=== PATIENT | female | born 1945 | race Caucasian/White ===

== ENCOUNTER 2019-07-19 14:49 | Emergency (ER) | payer MEDICARE, MEDICAID ==
[2019-07-19] MEDS ORDERED: Albuterol Sulfate 2.5 mg/0.5 ml Neb ONE ×2 (14:55→14:56)
[2019-07-19 15:12] LABS: #Basophils 0.2 thou/uL (0.0-0.2); #Lymphocytes 1.6 thou/uL (1.20-3.40); #Monocytes 1.9 thou/uL (0.11-0.59); #Neutrophils 12.4 thou/uL (1.40-6.50); %Basophils 1.3 % (0.0-1.0); %Lymphocytes 9.7 % (21.0-51.0); %Monocytes 11.6 % (0.0-10.0); %Neutrophils 77.3 % (42.0-75.0); Hemoglobin 11.4 g/dL (12.0-16.0); Mean Corpuscular HGB CONC 30.1 g/dL (32.0-36.0); Mean Corpuscular Hemoglobin 29.1 pg (27.0-31.0); Mean Corpuscular Volume 96.7 fL (78.0-98.0); Mean Platelet Volume 6.5 fL (7.4-10.4); Platelet Count 468 thou/uL (130-400); RBC Distribution Width 13.8 % (11.5-14.5)
[2019-07-19 15:26] LABS: ALT (SGPT) 15 U/L (8-55); AST (SGOT) 20 U/L (5-34); Albumin 3.3 g/dL (3.4-4.8); Alkaline Phosphatase 100 U/L (40-110); Anion Gap 16 mmol/L (10-20); BUN (Urea Nitrogen) 11 mg/dL (9.8-20.1); Bilirubin, Total 1.8 mg/dL (0.2-1.2); Calc. Creatinine Clearance 0 mL/min (70-130); Calcium 8.4 mg/dL (7.8-10.44); Carbon Dioxide 27 mmol/L (23-31); Chloride 93 mmol/L (98-107); Estimated GFR-MDRD 59; Glucose 161 mg/dL (83-110); Potassium 3.9 mmol/L (3.5-5.1); Protein, Total 7.3 g/dL (6.0-8.3); Sodium 132 mmol/L (136-145)
--- NOTE | 2019-07-19 15:27 | RAD ---
CHEST 1 VIEW PORTABLE: Date: 07/19/2019 HISTORY: Dyspnea. FINDINGS: Minimal cardiomegaly. Fairly marked increased linear and interstitial markings noted diffusely throug hout both lungs. Possibilities include that of chronic versus acute interstitial disease. Slight prom inence of the proximal pulmonary artery segments bilaterally. Old granulomatous disease. No old studi es. IMPRESSION: Minimal cardiomegaly with prominent increased linear and interstitial markings noted throughout both lungs, particularly in the perihilar regions, with some slight nodular fullness of both hilar areas, possible somewhat enlarged proximal pulmonary artery segments, which would raise concern for some chr onic interstitial lung disease. Correlate clinically. Continue short-term follow-up. POS: [facility]
[2019-07-19 15:45] LABS: CKMB 0.9 ng/mL (0-6.6)
[2019-07-19 15:55] LABS: INR-International Normal Ratio 1.2; Prothrombin Time 15.1 SEC (12.0-14.7)
[2019-07-19] MEDS ORDERED: Sodium Chloride 0.9% 100 ML ONE (16:13)
[2019-07-19] MEDS ORDERED: cefTRIAXone\\ROCEPHIN 1 GM VIAL ONE (16:13)
[2019-07-19] MEDS ORDERED: Aspirin Chewable 81 MG TAB ONE (16:13)
[2019-07-19] MEDS ORDERED: Furosemide 40 MG/4 ML VIAL ONE (19:07)
== END 2019-07-19 19:37 | disposition short-term general hospital (02) ==
LOC: MADERS 14:49
DX: R06.00 Dyspnea, unspecified (principal); Z79.82 Long term (current) use of aspirin; Z79.899 Other long term (current) drug therapy
CPT/HCPCS: 71045; 80053; 82553; 83605; 83880; 84484; 85025; 85610; 85730; 87040; 93005; 94760; 96365; 96375; 99292; J0696; J1940; J3490; J7611

== ENCOUNTER 2020-02-12 13:06 | Emergency (ER) | payer MEDICARE, MEDICAID ==
[~2020-02-12 13:06] MED LIST: Iopamidol 370 76% 100 ML VIAL ONE
[2020-02-12] MEDS ORDERED: Ondansetron PF 4 MG/2 ML Vial ONE (13:27)
[2020-02-12] MEDS ORDERED: Morphine 2 MG/ML SYRINGE ONE (13:27)
[2020-02-12 13:35] LABS: #Basophils 0.2 thou/uL (0.0-0.2); #Eosinphils 0.2 thou/uL (0.0-0.7); #Lymphocytes 1.7 thou/uL (1.20-3.40); %Basophils 1.1 % (0.0-1.0); %Eosinophils 1.2 % (0.0-10.0); %Lymphocytes 10.4 % (21.0-51.0); %Monocytes 6.2 % (0.0-10.0); %Neutrophils 81.2 % (42.0-75.0); Hemoglobin 10.6 g/dL (12.0-16.0); Mean Corpuscular HGB CONC 31.7 g/dL (32.0-36.0); Mean Corpuscular Hemoglobin 29.9 pg (27.0-31.0); Mean Corpuscular Volume 94.2 fL (78.0-98.0); Mean Platelet Volume 5.2 fL (7.4-10.4); Platelet Count 523 thou/uL (130-400); RBC Distribution Width 14.2 % (11.5-14.5); Red Blood Cell (RBC) Count 3.55 mill/uL (4.20-5.40); White Blood Cell (WBC) Count 16.1 thou/uL (4.8-10.8)
[2020-02-12 13:46] LABS: Lactic Acid 1.3 mmol/L (0.5-2.2)
[2020-02-12 13:47] LABS: Bilirubin Negative (Negative); Blood, Urine Moderate (Negative); Clarity Clear (Clear); Glucose, Urine (Dipstick) Negative (Negative); Ketone, Urine Negative (Negative); Leukocyte Moderate (Negative); Nitrite Positive (Negative); Protein, Urine (Dipstick) Negative (Neg-Trace); Specific Gravity, Urine 1.015 (1.005-1.030); Urobilinogen 0.2 mg/dL (Less than 2); pH, Urine 7.5 (5.0-9.0)
[2020-02-12 13:53] LABS: ALT (SGPT) 12 U/L (8-55); AST (SGOT) 12 U/L (5-34); Albumin 3.9 g/dL (3.4-4.8); Alkaline Phosphatase 75 U/L (40-110); Anion Gap 15 mmol/L (10-20); BUN (Urea Nitrogen) 10 mg/dL (9.8-20.1); Bilirubin, Total 0.4 mg/dL (0.2-1.2); CK (CPK) 55 U/L (29-168); Calc. Creatinine Clearance 0 mL/min (70-130); Calcium 8.6 mg/dL (7.8-10.44); Carbon Dioxide 23 mmol/L (23-31); Chloride 97 mmol/L (98-107); Estimated GFR-MDRD 71; Globulin 3.2 g/dL (2.4-3.5); Glucose 124 mg/dL (83-110); Lipase 17 U/L (8-78); Potassium 4.4 mmol/L (3.5-5.1); Protein, Total 7.1 g/dL (6.0-8.3); Sodium 131 mmol/L (136-145)
[2020-02-12 14:01] LABS: RBC/HPF 0-3 HPF (0-3)
[2020-02-12 14:02] LABS: Bacteria/HPF 3+ HPF (None Seen)
[2020-02-12] MEDS ORDERED: Sodium Chloride 0.9% 100 ML ONE (14:05)
[2020-02-12] MEDS ORDERED: cefTRIAXone\\ROCEPHIN 1 GM VIAL ONE (14:05)
--- NOTE | 2020-02-12 14:32 | CT ---
CT Abdomen Pelvis W Con HISTORY: Abdominal pain and bloating COMPARISON: None. FINDINGS: The chronic changes in the lung bases. The patient is postcholecystectomy and hysterectomy. The liver , spleen, adrenal glands are normal. Tiny low-density lesions in the kidneys are likely cysts. There is atrophy in the head of the pancreas. No free air or free fluid is seen in the abdomen or pelvis. The small bowel loops are not abnormally dilated. There is colonic diverticulosis without diverticulitis. Vascular calcification is present without evidence of aneurysmal dilatation of the abdominal aorta. There are degenerative changes with levoscoliosis of the lumbar spine. IMPRESSION: No evidence of acute process.
[2020-02-12] MEDS ORDERED: Lidocaine Viscous Sol 2% 15 ml UD Cup ONE (14:57)
[2020-02-12] MEDS ORDERED: Mag-Al Plus 1200 MG/1200 MG/120 MG/30 ML UDCUP ONE (14:57)
== END 2020-02-12 16:12 ==
LOC: MADERS 13:06
DX: N30.00 Acute cystitis without hematuria (principal); R10.13 Epigastric pain; I12.9 Hypertensive chronic kidney disease with stage 1 through stage 4 chronic kidney disease, or unspecified chronic kidney disease; N18.9 Chronic kidney disease, unspecified; I73.9 Peripheral vascular disease, unspecified; K21.9 Gastro-esophageal reflux disease without esophagitis; I48.91 Unspecified atrial fibrillation; F31.9 Bipolar disorder, unspecified; F41.9 Anxiety disorder, unspecified; F41.0 Panic disorder [episodic paroxysmal anxiety]; J44.9 Chronic obstructive pulmonary disease, unspecified; Z79.82 Long term (current) use of aspirin; Z79.899 Other long term (current) drug therapy; Z79.891 Long term (current) use of opiate analgesic
CPT/HCPCS: 36415; 51701; 74177; 80053; 81003; 81015; 82550; 83605; 83690; 84484; 85025; 96365; 96375; J0696; J2270; J2405; J3490; Q9967